=== PATIENT | male | born 2000 | race Caucasian/White ===

== ENCOUNTER 2024-03-17 11:40 | Emergency (ER) | payer MEDICAID, SELFPAY ==
[2024-03-17 12:21] VITALS: BP 133/80; PULSE 60; RESP 18; TEMP 37.3; O2SAT 98; BMI 26.9
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
== END 2024-03-17 12:33 | disposition home or self-care (01) ==
LOC: SERX 12:44
PROVIDERS: Emergency Provider Emergency Medicine
DX: K52.9 Noninfective gastroenteritis and colitis, unspecified (principal)
CPT/HCPCS: 99281

== ENCOUNTER 2024-05-05 09:17 | Emergency (ER) | payer MEDICAID, SELFPAY ==
[2024-05-05 09:28] VITALS: BP 130/72; PULSE 70; RESP 18; TEMP 36.8; O2SAT 97
[2024-05-05 09:29] VITALS: BMI 26.6
[2024-05-05 09:30] VITALS: BMI 27.3
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
[2024-05-05] MEDS: DIPHTH,PERTUSS(ACELL),TET VAC 0.5 ML SYR IMi (11:08)
== END 2024-05-05 11:06 ==
PROVIDERS: Emergency Provider Emergency Medicine
DX: Z02.89 Encounter for other administrative examinations (principal); S82.832A Other fracture of upper and lower end of left fibula, initial encounter for closed fracture; S00.83XA Contusion of other part of head, initial encounter; S50.311A Abrasion of right elbow, initial encounter; Z23 Encounter for immunization; Z65.3 Problems related to other legal circumstances; Z87.891 Personal history of nicotine dependence; Y04.0XXA Assault by unarmed brawl or fight, initial encounter
CPT/HCPCS: 29515; 70450; 70486; 73610; 73630; 90471; 90715; 99284

== ENCOUNTER 2024-05-07 09:39 | Emergency (ER) | payer MEDICAID, SELFPAY ==
--- NOTE | 2024-05-07 10:07 | EDNOTE_ITS ---
<Statement entered by Harika Robbins MD - 05/07/24 16:57> As co-signing physician, I was present and available for consult prn. I concur with the plan and care as documented by the midlevel provider. Lower Extremity Injury RME/HPI General Chief Complaint: Ankle/Foot Injury Stated Complaint: LEFT ANKLE PAIN, NEEDS CRUTCHES Time Seen by Provider: 05/07/24 10:15 Source: patient Arrival date/time: 05/07/24 09:39 23-year-old male with no known medical history presents to the emergency room with a chief complaint of left ankle pain. Patient was seen here 2 days ago and was discharged with a splint in place for an ankle fracture. Patient states he does not have any pain medication at home and needs crutches. Mode of arrival: ambulatory Limitations: no limitations Related Data Previous Rx's ?Medication ?Instructions ?Recorded amoxicillin 875 mg-potassium 1 tab PO Q12H #14 tabs clavulanate 125 mg tablet (Augmentin) apixaban 5 mg tablet (Eliquis) 10 mg (2 x 5 mg) PO BID #28 tabs 02/02/21 hydrocodone 5 mg-acetaminophen 325 1 tab PO BID PRN pa in #20 tabs 02/02/21 mg tablet sulfamethoxazole 800 1 tab PO Q12H #20 tabs 10/25 mg-trimethoprim 160 mg tablet ibuprofen 600 mg tablet 600 mg PO Q6H #30 tabs 03/17 loperamide 2 mg capsule (Imodium 2 mg PO Q6H PRN loose stool #14 03/17/24 A-D) caps ondansetron 4 mg disintegrating 4 mg PO Q8H PRN nausea and 03/17/24 tablet vomiting #10 tabs hydrocodone 5 mg-acetaminophen 325 1 tab PO BID PRN pa in #10 tabs 05/07/24 mg tablet Allergies Allergy/AdvReac Type Severity Reaction Status Date / Time No Known Allergies Allergy Verified 03/17/24 11:41 Review of Systems Review of Systems Systems Reviewed: All systems reviewed, normal except as documented Constitutional Constitutional: Reports system reviewed and no additional complaints, except as documented, Denies fatigue, Denies fever(s), Denies headache(s) and Denies weakness Eyes Eyes: Reports system reviewed and no additional complaints, except as documented, Denies blurry vision and Denies change in vision ENT Ears, Nose, Mouth, and Throat: Reports system reviewed and no additional complaints, except as documented, Denies otalgia, Denies headache(s), Denies nasal congestion, Denies throat swelling and Denies vertigo Cardiovascular Cardiovascular: Reports system reviewed and no additional complaints, except as documented, Denies chest pain, Denies dyspnea and Denies dyspnea on exertion Respiratory Respiratory: Reports system reviewed and no additional complaints, except as documented, Denies chest congestion, Denies cough, Denies dyspnea, Denies dyspnea on exertion and Denies wheezing Gastrointestinal Gastrointestinal: Reports system reviewed and no additional complaints, except as documented, Denies abdominal pain, Denies cramping, Denies nausea and Denies vomiting Genitourinary Genitourinary: Reports system reviewed and no additional complaints, except as documented, Denies dysuria and Denies hematuria Musculoskeletal Musculoskeletal: Reports system reviewed and no additional complaints, except as documented, Reports abnormal gait, Reports arthralgias, Denies back pain and Reports limited range of motion Integumentary/Breasts Skin/Breast: Reports system reviewed and no additional complaints, except as documented and Denies wounds Neurologic Neurologic: Reports system reviewed and no additional complaints, except as documented, Reports abnormal gait, Denies confusion, Denies headache(s), Denies lack of coordination, Denies vertigo and Denies weakness Psychiatric Psychiatric: Reports system reviewed and no additional complaints, except as documented, Denies anxiety, Denies confusion, Denies depression, Denies paranoia, Denies suicidal ideation and Denies tactile hallucinations Endocrine Endocrine: Reports system reviewed and no additional complaints, except as documented and Denies fatigue Hematologic/Lymphatic Hematologic/Lymphatic: Reports system reviewed and no additional complaints, except as documented and Denies lymphadenopathy Allergic/Immunologic Allergic/Immunologic: Reports system reviewed and no additional complaints, except as documented, Denies throat swelling, Denies urticaria and Denies wheezing Past Medical History Past Medical History NEUROLOGIC: Negative Neurological Disorders CARDIAC: Negative Cardiac Disorders or Congestive Heart Failure RESPIRATORY: Negative Chronic Obstructive Pulmonary Disease (COPD) or Asthma GENITOURINARY: Negative Renal Disease ENDOCRINE: Negative Diabetes Mellitus Type 1 or Diabetes Mellitus Type 2 HEMATOLOGIC: Negative Sickle Cell Disease OTHER HISTORY: Negative Hospitalization, Autoimmune Disease, Down Syndrome or Developmental Delay Social History SMOKING STATUS: Light (< 1 pack/day) SUBSTANCE USE: does not use ED Exam General Limitations: Present no limitations General appearance: Present alert and in no apparent distress Head Head exam: Present atraumatic Eye Eye exam: Present normal appearance, PERRL and EOMI ENT ENT exam: Present normal exam, normal oropharynx and mucous membranes moist Neck Neck exam: Present normal inspection, full ROM and trachea midline Chest Chest inspection: Present normal inspection and symmetric chest wall rise Respiratory Respiratory exam: Present normal lung sounds bilaterally Cardiovascular Cardiovascular exam: Present regular rate, normal rhythm and normal heart sounds Abdominal Exam Abdominal exam: Present soft and normal bowel sounds Extremities Exam Extremities exam: Present normal inspection and full ROM Expanded Lower Extremity Exam Hip/Pelvis exam: Present normal inspection Upper leg exam: Present normal inspection Knee exam: Present normal inspection Lower leg exam: Present normal inspection Ankle exam: Present tenderness and swelling; Absent full ROM Back Exam Back exam: Present normal inspection and full ROM Neurological Exam Neurological exam: Present alert, oriented X3 and CN II-XII intact Psychiatric Psychiatric exam: Present normal affect and normal mood Skin Skin exam: Present warm, dry, intact and normal color Course Quality Measures none Orders Category Date Time Status Crutches .NOW Care 05/07/24 10:01 Completed Ketorolac Inj [Toradol Inj] Med 05/07/24 10:01 Discontinued 30 mg IM X1 ONE Vital Signs Vital signs: Vital Signs Temperature 99.1 F 05/07/24 10:38 Pulse Rate 59 L 05/07/24 10:38 Respiratory Rate 16 05/07/24 10:38 Blood Pressure 145/83 H 05/07/24 10:38 Pulse Oximetry (%) 97 05/07/24 10:38 Oxygen Delivery Method Room Air 05/07/24 10:38 Extremity Injury, Lower MDM Narrative MDM Narrative:: 23-year-old male with no known medical history presents to the emergency room with a chief complaint of left ankle pain. Patient was seen here 2 days ago and was discharged with a splint in place for an ankle fracture. Patient states he does not have any pain medication at home and needs crutches. Patient is hemodynamically stable and in no distress An x-ray was completed here 2 days ago and the patient has an acute fracture of the distal fibular shaft. The patient presented to the emergency room with a splint in place. There is no numbness tingling or any complications with the splint. Patient states he is here for crutches because he never received them and he is having difficulty ambulating without any. Patient also states he is here for pain medication Patient was discharged with pain medication and discharged with crutches and educated to return to the emergency room for any evidence of worsening signs or symptoms Patient data External records reviewed:: [facility] previous records Clinical information provided by:: patient Social determinants that could affect healthcare access:: none Patient has the following chronic illnesses:: No chronic illness How is presenting disease/condition affected by chronic disease/condition?: no chronic disease Evaluation data The following diagnostics were reviewed and interpreted by me:: lab results and radiology exam(s) Lab and/or radiology exams considered but not ordered:: Labs and radiology exams considered and ordered Interpretation Summary: N/A Medications / Prescriptions Medications or Prescriptions considered but not ordered:: Medication given Medication administrations:: Medication Administration History Discontinued Medications Ketorolac Tromethamine (Ketorolac Inj 60 Mg/2 Ml Vial) 30 mg IM X1 ONE Stop: 05/07/24 10:02 Last Admin: 05/07/24 10:32 Dose: 30 mg Documented By: Medication given Consultations Consultation(s) initiated? (list below): No Diagnosis Extremity Injury, Lower Differential Diagnosis: ankle sprain and strain and ankle fracture Most likely diagnosis given after review of the tests above:: Ankle fracture Admission Indicated Admission indicated?: not indicated Admission Request Was there a request for admission?: No Disposition Plan Disposition Plan: Discharge Discharge Attestation Discharge Attestation: The patient and all family members were given an opportunity to ask questions and understood the discharge instructions. Discharge instructions specifically effects, indications for sooner follow up or return to the emergency department, and the expected course of current diagnosis. Patient condition: Stable Discharge Plan Plan Patient Disposition: HOME (Self Care) Disposition Comment: Stable Prescriptions/Referrals Prescriptions/Med Rec: New hydrocodone-acetaminophen 5-325 mg tablet 1 tab PO BID MDD 10mg PRN (Reason: pain) Qty: 10 0RF No Action sulfamethoxazole-trimethoprim 800-160 mg tablet 1 tab PO Q12H Qty: 20 0RF hydrocodone-acetaminophen 5-325 mg tablet 1 tab PO BID MDD 4 PRN (Reason: pain) Qty: 20 0RF amoxicillin-pot clavulanate [Augmentin] 875-125 mg tablet 1 tab PO Q12H Qty: 14 0RF Eliquis 5 mg tablet 10 mg PO BID MDD 4 Qty: 28 0RF loperamide [Imodium A-D] 2 mg capsule 2 mg PO Q6H PRN (Reason: loose stool) Qty: 14 0RF ibuprofen 600 mg tablet 600 mg PO Q6H Qty: 30 0RF ondansetron 4 mg tablet,disintegrating 4 mg PO Q8H PRN (Reason: nausea and vomiting) Qty: 10 0RF Problem List Clinical Impression: Fracture of distal end of left fibula Patient/Caregiver Discharge Instructions Education Materials: ED Fracture, Lower Extremity, ED Ankle Fracture, Distal Fibula Additional Instructions: Please follow-up with your primary care provider in the next 24 to 48 hours. Please keep your appointment with the behavior support specialist. Medication was sent to your pharmacy for your pain please pick it up and take it as indicated. Crutches were given to you. For any evidence of worsening signs or symptoms please return to the emergency room immediately Print Language: [place] Stand Alone Forms: Kelsi Award Info., Patient Portal Info Letter PA/JIM Supervising Physician PA/JIM Supervising Physician: Dr. ROBBINS
[2024-05-07] MEDS: KETOROLAC INJ 60 MG/2 ML VIAL 30 MG IM (10:32)
[2024-05-07 10:38] VITALS: BP 145/83; PULSE 59; RESP 16; TEMP 37.3; O2SAT 97; BMI 28.1
== END 2024-05-07 11:02 | disposition home or self-care (01) ==
LOC: SERX 11:07
PROVIDERS: Emergency Provider Emergency Medicine
DX: S82.832A Other fracture of upper and lower end of left fibula, initial encounter for closed fracture (principal); X58.XXXA Exposure to other specified factors, initial encounter
CPT/HCPCS: 96372; 99283; J1885

== ENCOUNTER 2024-07-15 07:59 | Emergency (ER) | payer MEDICAID, SELFPAY ==
[2024-07-15 08:21] VITALS: BP 160/88; PULSE 56; RESP 17; TEMP 36.4; O2SAT 100
--- NOTE | 2024-07-15 08:31 | XR_ITS ---
Examination: Tibia-Fibula, left , 2 views Technique: Tibia-fibula AP lateral 2 views Date and time of exam: July 15, 2024 0844 hours INDICATIONS: Patient fell today with injury of the lower leg, lower leg pain. FINDINGS: No acute fracture Old fracture distal fibular shaft No foreign body IMPRESSION: No acute fracture
--- NOTE | 2024-07-15 08:31 | XR_ITS ---
EXAMINATION: Ankle, left 3 views . Technique: Ankle AP, oblique, lateral 3 views Date and time of exam: July 15, 2024 0844 hours INDICATIONS: Patient fell today with injury to the ankle, ankle pain. FINDINGS: Old fracture distal fibular shaft No acute fracture No ankle dislocation IMPRESSION: No acute fracture
--- NOTE | 2024-07-15 08:33 | PD.EDLOWEX ---
Lower Extremity Injury RME/HPI General Chief Complaint: Extremity Injury, Lower Stated Complaint: SEVERE PAIN L) ANKLE/R) HAND/R) EAR SINCE YEST Time Seen by Provider: 07/15/24 08:32 Source: patient Arrival date/time: 07/15/24 07:59 24-year-old male with no known medical history presents to the emergency room with a chief complaint of pain and tenderness to his left ankle after being arrested yesterday and falling to the ground and injuring it. Patient also states there is tenderness to his right ear. Mode of arrival: ambulatory Limitations: no limitations Related Data Previous Rx's ?Medication ?Instructions ?Recorded amoxicillin 875 mg-potassium 1 tab PO Q12H #14 tabs 02/02/21 clavulanate 125 mg tablet (Augmentin) apixaban 5 mg tablet (Eliquis) 10 mg (2 x 5 mg) PO BID #28 tabs 02/02/21 hydrocodone 5 mg-acetaminophen 325 1 tab PO BID PRN pain #20 tabs 02/02/21 mg tablet sulfamethoxazole 800 1 tab PO Q12H #20 tabs 10/25/21 mg-trimethoprim 160 mg tablet ibuprofen 600 mg tablet 600 mg PO Q6H #30 tabs 03/17/24 loperamide 2 mg capsule (Imodium 2 mg PO Q6H PRN loose stool #14 03/17/24 A-D) caps ondansetron 4 mg disintegrating 4 mg PO Q8H PRN nausea and 03/17/24 tablet vomiting #10 tabs hydrocodone 5 mg-acetaminophen 325 1 tab PO BID PRN pain #10 tabs 05/07/24 mg tablet acetaminophen 325 mg capsule 650 mg (2 x 325 mg) PO QID PRN 07/15/24 fever or pain 7 days #30 caps amoxicillin 875 mg-potassium 1 tab PO BID 7 days #14 tabs 07/15/24 clavulanate 125 mg tablet ofloxacin 0.3 % ear drops 10 drp otic (ear) QDAY 7 days #5 mL 07/15/24 Allergies Allergy/AdvReac Type Severity Reaction Status Date / Time No Known Allergies Allergy Verified 07/15/24 08:06 Review of Systems Review of Systems Systems Reviewed: All systems reviewed, normal except as documented Constitutional Constitutional: Reports system reviewed and no additional complaints, except as documented, Denies fatigue, Denies fever(s), Denies headache(s) and Denies weakness Eyes Eyes: Reports system reviewed and no additional complaints, except as documented, Denies blurry vision and Denies change in vision ENT Ears, Nose, Mouth, and Throat: Reports system reviewed and no additional complaints, except as documented, Reports otalgia, Denies headache(s), Denies nasal congestion, Denies throat swelling and Denies vertigo Cardiovascular Cardiovascular: Reports system reviewed and no additional complaints, except as documented, Denies chest pain, Denies dyspnea and Denies dyspnea on exertion Respiratory Respiratory: Reports system reviewed and no additional complaints, except as documented, Denies chest congestion, Denies cough, Denies dyspnea, Denies dyspnea on exertion and Denies wheezing Gastrointestinal Gastrointestinal: Reports system reviewed and no additional complaints, except as documented, Denies abdominal pain, Denies cramping, Denies nausea and Denies vomiting Genitourinary Genitourinary: Reports system reviewed and no additional complaints, except as documented, Denies dysuria and Denies hematuria Musculoskeletal Musculoskeletal: Reports system reviewed and no additional complaints, except as documented, Reports abnormal gait, Reports arthralgias, Denies back pain, Reports joint swelling and Reports limited range of motion Integumentary/Breasts Skin/Breast: Reports system reviewed and no additional complaints, except as documented and Denies wounds Neurologic Neurologic: Reports system reviewed and no additional complaints, except as documented, Reports abnormal gait, Denies confusion, Denies headache(s), Denies lack of coordination, Denies vertigo and Denies weakness Psychiatric Psychiatric: Reports system reviewed and no additional complaints, except as documented, Denies anxiety, Denies confusion, Denies depression, Denies paranoia, Denies suicidal ideation and Denies tactile hallucinations Endocrine Endocrine: Reports system reviewed and no additional complaints, except as documented and Denies fatigue Hematologic/Lymphatic Hematologic/Lymphatic: Reports system reviewed and no additional complaints, except as documented and Denies lymphadenopathy Allergic/Immunologic Allergic/Immunologic: Reports system reviewed and no additional complaints, except as documented, Denies throat swelling, Denies urticaria and Denies wheezing Past Medical History Past Medical History NEUROLOGIC: Negative Neurological Disorders CARDIAC: Negative Cardiac Disorders or Congestive Heart Failure RESPIRATORY: Negative Chronic Obstructive Pulmonary Disease (COPD) or Asthma GENITOURINARY: Negative Renal Disease ENDOCRINE: Negative Diabetes Mellitus Type 1 or Diabetes Mellitus Type 2 HEMATOLOGIC: Negative Sickle Cell Disease OTHER HISTORY: Negative Hospitalization, Autoimmune Disease, Down Syndrome or Developmental Delay Social History SMOKING STATUS: Current every day smoker SUBSTANCE USE: does not use ED Exam General Limitations: Present no limitations General appearance: Present alert and in no apparent distress Head Head exam: Present atraumatic Eye Eye exam: Present normal appearance, PERRL and EOMI ENT ENT exam: Present normal exam, normal oropharynx and mucous membranes moist Expanded ENT Exam TM/Canal exam: Right TM: erythema, bulging, foreign body (Looks like a betts tail or mosquito on TM), canal discharge and canal tenderness Neck Neck exam: Present normal inspection, full ROM and trachea midline Chest Chest inspection: Present normal inspection and symmetric chest wall rise Respiratory Respiratory exam: Present normal lung sounds bilaterally Cardiovascular Cardiovascular exam: Present regular rate, normal rhythm and normal heart sounds Abdominal Exam Abdominal exam: Present soft and normal bowel sounds Extremities Exam Extremities exam: Present normal inspection and full ROM Expanded Lower Extremity Exam Hip/Pelvis exam: Present normal inspection Upper leg exam: Present normal inspection Knee exam: Present normal inspection Lower leg exam: Present normal inspection Ankle exam: Present tenderness and swelling; Absent full ROM Gait: observed and limited by pain Back Exam Back exam: Present normal inspection and full ROM Neurological Exam Neurological exam: Present alert, oriented X3 and CN II-XII intact Psychiatric Psychiatric exam: Present normal affect and normal mood Skin Skin exam: Present warm, dry, intact and normal color Course Quality Measures none Orders Category Date Time Status Crutches .NOW Care 07/15/24 08:31 Active ED Ear Irrigation X1 Care 07/15/24 08:31 Active gustavo wrap [Splint / Immobilizer] STAT Care 07/15/24 08:31 Active XR ankle comp LT min 3V Stat Exams 07/15/24 08:31 Completed XR tibia fibula LT 2V Stat Exams 07/15/24 08:31 Completed HYDROcodone*/APAP 5/325 [Hammond 5/325] Med 07/15/24 08:54 Discontinued 1 tab PO X1 ONE Vital Signs Vital signs: Vital Signs Temperature 97.5 F 07/15/24 08:21 Pulse Rate 56 L 07/15/24 08:21 Respiratory Rate 17 07/15/24 08:21 Blood Pressure 160/88 H 07/15/24 08:21 Pulse Oximetry (%) 100 07/15/24 08:21 Oxygen Delivery Method Room Air 07/15/24 08:21 Procedures -ED FB Removal Ear Location: ear canal (R) Foreign Body Suspected: insect TM intact pre-procedure: yes If Insect Suspected: ear canal instilled with Lidocaine Foreign Body Removed: partial removal Foreign Body Removal Technique: irrigation Tympanic Membrane Intact Post Procedure: Yes Patient Tolerated Procedure: no complications and other (Patient was having a lot of pain and tenderness and we are not able to remove the foreign body) Complications: unable to tolerate Extremity Injury, Lower MDM Narrative MDM Narrative:: 24-year-old male with no known medical history presents to the emergency room with a chief complaint of pain and tenderness to his left ankle after being arrested yesterday and falling to the ground and injuring it. Patient also states there is tenderness to his right ear. Physical examination shows a right sided erythemic bulging tympanic membrane. There is also a foreign body inside the ear canal on the tympanic membrane. It appears to be either a betts tail type of grass or a mosquito insect. The ear was irrigated multiple times. Lidocaine was used inside to numb up the area and kill the insect if it is an insect. I tried to manually remove the insect with forceps and only partially removed which appears to be an insect leg or piece of grass. Patient states he is having pain around the ear canal when going in with tools. Based on the patient's pain I decided to stop. Tympanic membrane is still intact bulging but is very erythemic. I spoke to the patient and told him he will need to follow-up with his primary care provider for referral to an ENT specialist. Antibiotics were sent to his pharmacy Patient is also complaining of pain and tenderness to his ankle. X-rays were negative for any acute fracture or dislocation Patient was discharged and educated to follow-up with primary care provider in the next 24 to 48 hours and return to the emergency room for any evidence of worsening signs or symptoms Patient data External records reviewed:: [facility] previous records Clinical information provided by:: patient Social determinants that could affect healthcare access:: none Patient has the following chronic illnesses:: No chronic illness How is presenting disease/condition affected by chronic disease/condition?: no chronic disease Evaluation data The following diagnostics were reviewed and interpreted by me:: lab results and radiology exam(s) Lab and/or radiology exams considered but not ordered:: Labs and radiology exams considered and ordered Interpretation Summary: X-ray of the left ankle-no acute fracture or dislocation X-ray of the left tib-fib-no acute fracture or dislocation Medications / Prescriptions Medications or Prescriptions considered but not ordered:: Medication given Medication administrations:: Medication Administration History Discontinued Medications Hydrocodone Bitart/Acetaminophen (Hydrocodone/Apap 5/325 Tablet) 1 tab PO X1 ONE Stop: 07/15/24 08:55 Last Admin: 07/15/24 09:05 Dose: 1 tab Documented By: OLIVER Medication given Consultations Consultation(s) initiated? (list below): No Diagnosis Extremity Injury, Lower Differential Diagnosis: ankle sprain and strain and other (Foreign body in the right ear) Most likely diagnosis given after review of the tests above:: Foreign body in the right ear Admission Indicated Admission indicated?: not indicated Admission Request Was there a request for admission?: No Disposition Plan Disposition Plan: Discharge Discharge Attestation Discharge Attestation: The patient and all family members were given an opportunity to ask questions and understood the discharge instructions. Discharge instructions specifically effects, indications for sooner follow up or return to the emergency department, and the expected course of current diagnosis. Patient condition: Stable Discharge Plan Plan Patient Disposition: HOME (Self Care) Disposition Comment: Stable Prescriptions/Referrals Prescriptions/Med Rec: New ofloxacin 0.3 % drops 10 drp otic (ear) QDAY 7 Days Qty: 5 0RF amoxicillin-pot clavulanate 875-125 mg tablet 1 tab PO BID 7 Days Qty: 14 0RF acetaminophen 325 mg capsule 650 mg PO QID PRN (Reason: fever or pain) 7 Days Qty: 30 0RF No Action sulfamethoxazole-trimethoprim 800-160 mg tablet 1 tab PO Q12H Qty: 20 0RF hydrocodone-acetaminophen 5-325 mg tablet 1 tab PO BID MDD 4 PRN (Reason: pain) Qty: 20 0RF amoxicillin-pot clavulanate [Augmentin] 875-125 mg tablet 1 tab PO Q12H Qty: 14 0RF Eliquis 5 mg tablet 10 mg PO BID MDD 4 Qty: 28 0RF hydrocodone-acetaminophen 5-325 mg tablet 1 tab PO BID MDD 10mg PRN (Reason: pain) Qty: 10 0RF loperamide [Imodium A-D] 2 mg capsule 2 mg PO Q6H PRN (Reason: loose stool) Qty: 14 0RF ibuprofen 600 mg tablet 600 mg PO Q6H Qty: 30 0RF ondansetron 4 mg tablet,disintegrating 4 mg PO Q8H PRN (Reason: nausea and vomiting) Qty: 10 0RF Referrals: No Primary/Family,Physician [Primary Care Provider] - In 1 week Problem List Clinical Impression: Ankle sprain and strain, Otitis media, Acute foreign body of right ear Patient/Caregiver Discharge Instructions Education Materials: ED EAR CANAL Foreign Body, ED Otitis Media Antibiotic ... Additional Instructions: Please follow-up with your primary care provider in the next 24 to 48 hours. You will need a referral to an ENT specialist to try and remove this foreign body from your right ear. Multiple attempts were made here in the emergency room and were not successful. Antibiotics were sent to your pharmacy please pick them up and take them as indicated. For any evidence of worsening signs or symptoms return to the emergency room immediately Print Language: Sinhala Stand Alone Forms: Kelsi Award Info., Work/School Release, Patient Portal Info Letter PA/SOUND CONTROLLER Supervising Physician PA/JIM Supervising Physician: Dr. Alvarado
[2024-07-15] MEDS: HYDROcodone/APAP 5/325 TABLET 1 TAB PO (09:05)
== END 2024-07-15 10:17 | disposition home or self-care (01) ==
PROVIDERS: Emergency Provider Family Medicine
DX: T16.1XXA Foreign body in right ear, initial encounter (principal); S93.402A Sprain of unspecified ligament of left ankle, initial encounter; S96.912A Strain of unspecified muscle and tendon at ankle and foot level, left foot, initial encounter; S89.92XA Unspecified injury of left lower leg, initial encounter; H66.91 Otitis media, unspecified, right ear; F17.210 Nicotine dependence, cigarettes, uncomplicated; W44.9XXA Unspecified foreign body entering into or through a natural orifice, initial encounter; Z65.3 Problems related to other legal circumstances; W19.XXXA Unspecified fall, initial encounter
CPT/HCPCS: 69200; 73590; 73610; 99283; A9270

== ENCOUNTER 2025-03-11 04:55 | Emergency (ER) | payer MEDICAID, SELFPAY ==
[2025-03-11 04:57] VITALS: BMI 25.8
[2025-03-11 05:01] VITALS: BP 131/83; PULSE 77; RESP 18; TEMP 36.7; O2SAT 100
--- NOTE | 2025-03-11 05:16 | XR_ITS ---
EXAMINATION: Ankle, left 3 views. Technique: Ankle AP, oblique, lateral 3 views Date and time of exam: March 11, 2025, 0531 hours INDICATIONS: Injury to the ankle today, ankle pain FINDINGS: Status post operative reduction internal fixation healed fracture distal fibular shaft No acute ankle fracture Mild osteoarthritis tibiotalar joint No ankle dislocation IMPRESSION: No acute ankle fracture
--- NOTE | 2025-03-11 05:16 | PD.EDRME ---
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 Chief Complaint: Ankle/Foot Injury Vital signs: Vital Signs Temperature 98.1 F 03/11/25 05:01 Pulse Rate 77 03/11/25 05:01 Respiratory Rate 18 03/11/25 05:01 Blood Pressure 131/83 H 03/11/25 05:01 Pulse Oximetry (%) 100 03/11/25 05:01 Oxygen Delivery Method Room Air 03/11/25 05:01 Exam: L ankle swelling, tenderness, and bruising. ROM limited. No foot tenderness. Clinical Impression: Ankle sprain vs ankle strain vs ankle fx vs ankle dislocation
[2025-03-11 08:03] VITALS: BP 148/89; PULSE 81; RESP 16; TEMP 36.8; O2SAT 99
--- NOTE | 2025-03-11 08:09 | EDNOTE_ITS ---
<Statement entered by Harika Robbins MD - 03/26/25 17:42> As co-signing physician, I was present and available for consult prn. I concur with the plan and care as documented by the midlevel provider. 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 Exam: L ankle swelling, tenderness, and bruising. ROM limited. No foot tenderness. Impression: Ankle sprain vs ankle strain vs ankle fx vs ankle dislocation Related Data Previous Rx's ?Medication ?Instructions ?Recorded amoxicillin 875 mg-potassium 1 tab PO Q12H #14 tabs clavulanate 125 mg tablet (Augmentin) apixaban 5 mg tablet (Eliquis) 10 mg (2 x 5 mg) PO BID #28 tabs 02/02/21 hydrocodone 5 mg-acetaminophen 325 1 tab PO BID PRN pa in #20 tabs 02/02/21 mg tablet sulfamethoxazole 800 1 tab PO Q12H #20 tabs 10/25 mg-trimethoprim 160 mg tablet ibuprofen 600 mg tablet 600 mg PO Q6H #30 tabs 03/17 loperamide 2 mg capsule (Imodium 2 mg PO Q6H PRN loose stool #14 03/17/24 A-D) caps ondansetron 4 mg disintegrating 4 mg PO Q8H PRN nausea and 03/17/24 tablet vomiting #10 tabs hydrocodone 5 mg-acetaminophen 325 1 tab PO BID PRN pa in #10 tabs 05/07/24 mg tablet Allergies Allergy/AdvReac Type Severity Reaction Status Date / Time No Known Allergies Allergy Verified 03/11/25 04:56 Review of Systems Review of Systems Systems Reviewed: All systems reviewed, normal except as documented Constitutional Constitutional: Reports system reviewed and no additional complaints, except as documented, Denies fever(s) and Denies headache(s) Eyes Eyes: Reports system reviewed and no additional complaints, except as documented and Denies blurry vision ENT Ears, Nose, Mouth, and Throat: Reports system reviewed and no additional complaints, except as documented, Denies headache(s), Denies nasal congestion and Denies nasal discharge Cardiovascular Cardiovascular: Reports system reviewed and no additional complaints, except as documented, Denies chest pain and Denies dyspnea Respiratory Respiratory: Reports system reviewed and no additional complaints, except as documented, Denies chest congestion, Denies cough and Denies dyspnea Gastrointestinal Gastrointestinal: Reports system reviewed and no additional complaints, except as documented and Denies abdominal pain Musculoskeletal Musculoskeletal: Reports system reviewed and no additional complaints, except as documented, Reports abnormal gait, Reports arthralgias, Denies deformity, Reports joint swelling, Denies numbness, Reports stiffness and Denies tingling Integumentary/Breasts Skin/Breast: Reports system reviewed and no additional complaints, except as documented and Denies rash Neurologic Neurologic: Reports system reviewed and no additional complaints, except as documented, Reports as per HPI, Reports abnormal gait, Denies headache(s), Denies numbness and Denies tingling Past Medical History Past Medical History NEUROLOGIC: Negative Neurological Disorders CARDIAC: Negative Cardiac Disorders or Congestive Heart Failure RESPIRATORY: Negative Chronic Obstructive Pulmonary Disease (COPD) or Asthma GENITOURINARY: Negative Renal Disease ENDOCRINE: Negative Diabetes Mellitus Type 1 or Diabetes Mellitus Type 2 HEMATOLOGIC: Negative Sickle Cell Disease OTHER HISTORY: Negative Hospitalization, Autoimmune Disease, Down Syndrome or Developmental Delay Social History SMOKING STATUS: Current every day smoker SUBSTANCE USE: does not use ED Exam General Limitations: Present no limitations General appearance: Present alert and in no apparent distress Head Head exam: Present atraumatic Eye Eye exam: Present normal appearance, PERRL and EOMI ENT ENT exam: Present normal exam, normal oropharynx and mucous membranes moist Neck Neck exam: Present normal inspection, full ROM and trachea midline Chest Chest inspection: Present normal inspection and symmetric chest wall rise Respiratory Respiratory exam: Present normal lung sounds bilaterally Cardiovascular Cardiovascular exam: Present regular rate, normal rhythm and normal heart sounds Abdominal Exam Abdominal exam: Present soft and normal bowel sounds Extremities Exam Extremities exam: Present full ROM, tenderness (Previous scar left ankle) and normal capillary refill; Absent pedal edema or calf tenderness Back Exam Back exam: Present normal inspection and full ROM Neurological Exam Neurological exam: Present alert, oriented X3 and CN II-XII intact Psychiatric Psychiatric exam: Present normal affect and normal mood Skin Skin exam: Present warm, dry, intact and normal color Course Quality Measures none Orders Category Date Time Status Crutches .NOW Care 03/11/25 08:09 Completed Splint / Immobilizer STAT Care 03/11/25 08:09 Completed XR ankle comp LT min 3V Stat Exams 03/11/25 05:16 Completed Vital Signs Vital signs: Vital Signs Temperature 98.1 F 03/11/25 05:01 Pulse Rate 77 03/11/25 05:01 Respiratory Rate 18 03/11/25 05:01 Blood Pressure 131/83 H 03/11/25 05:01 Pulse Oximetry (%) 100 03/11/25 05:01 Oxygen Delivery Method Room Air 03/11/25 05:01 O2 saturation 100% on room air within normal limits Extremity Injury, Lower MDM Narrative MDM Narrative:: 24-year-old male presents to the emergency department today stating that he was running and twisted his left ankle patient reports pain to the top of his left foot and left ankle patient reports previous fracture to the left ankle with repair On exam patient well-appearing does not appear toxic no distress Imaging of the left ankle obtained no acute fracture or dislocation noted Patient placed in a cast boot and given crutches Patient discharged home in no distress to follow-up with primary care doctor in the next 24 to 48 hours and for any worsening symptoms to return to the ER im mediately Patient data External records reviewed:: [facility] previous records Clinical information provided by:: patient Social determinants that could affect healthcare access:: none Patient has the following chronic illnesses:: See history How is presenting disease/condition affected by chronic disease/condition?: exacerbated by Evaluation data The following diagnostics were reviewed and interpreted by me:: radiology exam(s) Lab and/or radiology exams considered but not ordered:: Radiology obtained Interpretation Summary: Reviewed by me Medications / Prescriptions Medications or Prescriptions considered but not ordered:: Given Medication administrations:: Given Consultations Consultation(s) initiated? (list below): No Diagnosis Extremity Injury, Lower Differential Diagnosis: ankle sprain and strain and ankle fracture Most likely diagnosis given after review of the tests above:: Ankle fracture Admission Indicated Admission indicated?: not indicated Admission Request Was there a request for admission?: No Disposition Plan Disposition Plan: Discharge Discharge Attestation Discharge Attestation: The patient and all family members were given an opportunity to ask questions and understood the discharge instructions. Discharge instructions specifically effects, indications for sooner follow up or return to the emergency department, and the expected course of current diagnosis. Patient condition: Stable Discharge Plan Plan Patient Disposition: HOME (Self Care) Discharge Disposition comment: Stable Prescriptions/Referrals Prescriptions/Med Rec: No Action sulfamethoxazole-trimethoprim 800-160 mg tablet 1 tab PO Q12H Qty: 20 0RF hydrocodone-acetaminophen 5-325 mg tablet 1 tab PO BID MDD 4 PRN (Reason: pain) Qty: 20 0RF amoxicillin-pot clavulanate [Augmentin] 875-125 mg tablet 1 tab PO Q12H Qty: 14 0RF Eliquis 5 mg tablet 10 mg PO BID MDD 4 Qty: 28 0RF hydrocodone-acetaminophen 5-325 mg tablet 1 tab PO BID MDD 10mg PRN (Reason: pain) Qty: 10 0RF loperamide [Imodium A-D] 2 mg capsule 2 mg PO Q6H PRN (Reason: loose stool) Qty: 14 0RF ibuprofen 600 mg tablet 600 mg PO Q6H Qty: 30 0RF ondansetron 4 mg tablet,disintegrating 4 mg PO Q8H PRN (Reason: nausea and vomiting) Qty: 10 0RF Referrals: Alex Barajas MD [Primary Care Provider, Family Practice] - In 1 week Problem List Clinical Impression: Sprain of left foot Patient/Caregiver Discharge Instructions Additional Instructions: Please follow up with your primary care doctor in the next 24-48hrs for any worsening symptoms return here immediately Print Language: Brazilian Stand Alone Forms: Kelsi Award Info., Patient Portal Info Letter PA/CHOIR MEMBER Supervising Physician PA/JIM Supervising Physician: Dr. Robbins
== END 2025-03-11 08:23 | disposition home or self-care (01) ==
PROVIDERS: Emergency Provider Emergency Medicine; PCP Family Medicine
DX: S93.602A Unspecified sprain of left foot, initial encounter (principal); X50.1XXA Overexertion from prolonged static or awkward postures, initial encounter; Y93.02 Activity, running
CPT/HCPCS: 73610; 99283

== ENCOUNTER 2025-03-24 15:20 | Emergency (ER) | payer OTHER, SELFPAY ==
[2025-03-24 15:26] VITALS: BP 156/96; PULSE 72; RESP 16; TEMP 36.9; O2SAT 100
[2025-03-24 15:27] VITALS: BMI 23.6
--- NOTE | 2025-03-24 16:17 | EDNOTE_ITS ---
ED Ear RME/HPI General Chief complaint: Ear Stated complaint: SHULTZ TAIL IN EAR Time Seen by Provider: 03/24/25 15:59 Source: patient Arrival date/time: 03/24/25 15:20 24-year-old male with no known medical history presents to the emergency room with a chief complaint of a shultz tail in his left ear x 8 months Mode of arrival: ambulatory Limitations: no limitations Related Data Previous Rx's ?Medication ?Instructions ?Recorded amoxicillin 875 mg-potassium 1 tab PO Q12H #14 tabs clavulanate 125 mg tablet (Augmentin) apixaban 5 mg tablet (Eliquis) 10 mg (2 x 5 mg) PO BID #28 tabs 02/02/21 hydrocodone 5 mg-acetaminophen 325 1 tab PO BID PRN pa in #20 tabs 02/02/21 mg tablet sulfamethoxazole 800 1 tab PO Q12H #20 tabs 10/25 mg-trimethoprim 160 mg tablet ibuprofen 600 mg tablet 600 mg PO Q6H #30 tabs 03/17 loperamide 2 mg capsule (Imodium 2 mg PO Q6H PRN loose stool #14 03/17/24 A-D) caps ondansetron 4 mg disintegrating 4 mg PO Q8H PRN nausea and 03/17/24 tablet vomiting #10 tabs hydrocodone 5 mg-acetaminophen 325 1 tab PO BID PRN pa in #10 tabs 05/07/24 mg tablet amoxicillin 875 mg-potassium 1 tab PO BID 7 days #14 t abs 03/24/25 clavulanate 125 mg tablet ofloxacin 0.3 % ear drops 5 drp otic (ear) QDAY 7 days #5 mL 03/24/25 Allergies Allergy/AdvReac Type Severity Reaction Status Date / Time No Known Allergies Allergy Verified 03/24/25 15:36 Review of Systems Review of Systems Systems Reviewed: All systems reviewed, normal except as documented Constitutional Constitutional: Reports system reviewed and no additional complaints, except as documented, Denies fatigue, Denies fever(s), Denies headache(s) and Denies weakness Eyes Eyes: Reports system reviewed and no additional complaints, except as documented, Denies blurry vision and Denies change in vision ENT Ears, Nose, Mouth, and Throat: Reports system reviewed and no additional complaints, except as documented, Reports otalgia, Denies headache(s), Denies nasal congestion, Denies throat swelling and Denies vertigo Cardiovascular Cardiovascular: Reports system reviewed and no additional complaints, except as documented, Denies chest pain, Denies dyspnea and Denies dyspnea on exertion Respiratory Respiratory: Reports system reviewed and no additional complaints, except as documented, Denies chest congestion, Denies cough, Denies dyspnea, Denies dyspne a on exertion and Denies wheezing Gastrointestinal Gastrointestinal: Reports system reviewed and no additional complaints, except as documented, Denies abdominal pain, Denies cramping, Denies nausea and Denies vomiting Genitourinary Genitourinary: Reports system reviewed and no additional complaints, except as documented, Denies dysuria and Denies hematuria Musculoskeletal Musculoskeletal: Reports system reviewed and no additional complaints, except as documented and Denies back pain Integumentary/Breasts Skin/Breast: Reports system reviewed and no additional complaints, except as documented and Denies wounds Neurologic Neurologic: Reports system reviewed and no additional complaints, except as documented, Denies confusion, Denies headache(s), Denies lack of coordination, Denies vertigo and Denies weakness Psychiatric Psychiatric: Reports system reviewed and no additional complaints, except as documented, Denies anxiety, Denies confusion, Denies depression, Denies paranoia, Denies suicidal ideation and Denies tactile hallucinations Endocrine Endocrine: Reports system reviewed and no additional complaints, except as documented and Denies fatigue Hematologic/Lymphatic Hematologic/Lymphatic: Reports system reviewed and no additional complaints, except as documented and Denies lymphadenopathy Allergic/Immunologic Allergic/Immunologic: Reports system reviewed and no additional complaints, except as documented, Denies throat swelling, Denies urticaria and Denies wheezing Past Medical History Past Medical History NEUROLOGIC: Negative Neurological Disorders CARDIAC: Negative Cardiac Disorders or Congestive Heart Failure RESPIRATORY: Negative Chronic Obstructive Pulmonary Disease (COPD) or Asthma GENITOURINARY: Negative Renal Disease ENDOCRINE: Negative Diabetes Mellitus Type 1 or Diabetes Mellitus Type 2 HEMATOLOGIC: Negative Sickle Cell Disease OTHER HISTORY: Negative Hospitalization, Autoimmune Disease, Down Syndrome or Developmental Delay Social History SMOKING STATUS: Current every day smoker SUBSTANCE USE: does not use ED Exam General Limitations: Present no limitations General appearance: Present alert and in no apparent distress Head Head exam: Present atraumatic Eye Eye exam: Present normal appearance, PERRL and EOMI ENT ENT exam: Present normal exam, normal oropharynx and mucous membranes moist Expanded ENT Exam External ear exam: Present external tenderness TM/Canal exam: Right TM: erythema, bulging, effusion and foreign body (shultz tail) Neck Neck exam: Present normal inspection, full ROM and trachea midline Chest Chest inspection: Present normal inspection and symmetric chest wall rise Respiratory Respiratory exam: Present normal lung sounds bilaterally Cardiovascular Cardiovascular exam: Present regular rate, normal rhythm and normal heart sounds Abdominal Exam Abdominal exam: Present soft and normal bowel sounds Extremities Exam Extremities exam: Present normal inspection and full ROM Back Exam Back exam: Present normal inspection and full ROM Neurological Exam Neurological exam: Present alert, oriented X3 and CN II-XII intact Psychiatric Psychiatric exam: Present normal affect and normal mood Skin Skin exam: Present warm, dry, intact and normal color Course Quality Measures none Orders Category Date Time Status ED Ear Irrigation X1 Care 03/24/25 15:53 Active HYDROcodone*/APAP 5/325 [[place] 5/325] Med 03/24/25 16:24 Discontinued 1 tab PO X1 ONE Meclizine HCl [Antivert] Med 03/24/25 16:24 Discontinued 50 mg PO X1 ONE cefTRIAXone [Rocephin] 1,000 mg Med 03/24/25 16:25 Discontinued Lidocaine 1% Pf Vial 5ml [Xylocaine 1% Pf 5 ml] 2.1 ml IM X1 Vital Signs Vital signs: Vital Signs Temperature 98.4 F 03/24/25 15:26 Pulse Rate 72 03/24/25 15:26 Respiratory Rate 16 03/24/25 15:26 Blood Pressure 156/96 H 03/24/25 15:26 Pulse Oximetry (%) 100 03/24/25 15:26 Oxygen Delivery Method Room Air 03/24/25 15:26 Ear MDM Narrative MDM Narrative:: 24-year-old male with no known medical history presents to the emergency room with a chief complaint of a shultz tail in his left ear x 8 months Patient is hemodynamically stable and in no apparent distress. Patient is afebrile not tachycardic not tachypneic Physical examination shows an erythemic bulging right sided tympanic membrane. The patient also has a foreign body inside his ear which is a shultz tail. Patient was seen here on June 2024 for the same complaint. This patient has had this foreign body in place since June. Patient states he has been unable to see an ENT specialist at this time. The patient is now going in for incarceration and states he was having pain and tenderness in his ear. I attempted irrigation as well as manual removal of the foxtail but was unsuccessful due to it being too close to the tympanic membrane and too painful for the patient to tolerate. The patient was given oral antibiotics for otitis media and educated to follow-up with ENT. The patient was then medically cleared for incarceration Patient was discharged and educated to follow-up with primary care provider in the next 24 to 48 hours and return to the emergency room for any evidence of wor sening signs or symptoms Patient data External records reviewed:: [facility] previous records Clinical information provided by:: patient Social determinants that could affect healthcare access:: none Patient has the following chronic illnesses:: No chronic illness How is presenting disease/condition affected by chronic disease/condition?: no chronic disease Evaluation data The following diagnostics were reviewed and interpreted by me:: lab results and radiology exam(s) Lab and/or radiology exams considered but not ordered:: Labs and radiology exams considered and ordered yes Interpretation Summary: N/A Medications / Prescriptions Medications or Prescriptions considered but not ordered:: Medication given Medication administrations:: Medication Administration History Discontinued Medications Hydrocodone Bitart/Acetaminophen (Hydrocodone/Apap 5/325 Tablet) 1 tab PO X1 ONE Stop: 03/24/25 16:25 Ceftriaxone Sodium 1,000 mg/ (Lidocaine HCl 2.1 ml) 0 mg IM X1 ONE Stop: 03/24/25 16:26 Meclizine HCl (Meclizine Hcl 25 Mg Tablet) 50 mg PO X1 ONE Stop: 03/24/25 16:25 Medication given Consultations Consultation(s) initiated? (list below): No Diagnosis Ear Differential Diagnosis: otitis externa, otitis media and foreign body in ear Most likely diagnosis given after review of the tests above:: Foreign body in ear, otitis media Admission Indicated Admission indicated?: not indicated Admission Request Was there a request for admission?: No Disposition Plan Disposition Plan: Discharge Discharge Attestation Discharge Attestation: The patient and all family members were given an opportunity to ask questions and understood the discharge instructions. Discharge instructions specifically effects, indications for sooner follow up or return to the emergency department, and the expected course of current diagnosis. Patient condition: Stable Medical Decision Making MDM Narrative MDM Narrative: 24-year-old male with no known medical history presents to the emergency room with a chief complaint of a shultz tail in his left ear x 8 months Discharge Plan Plan Patient Disposition: HOME (Self Care) Discharge Disposition comment: Stable Prescriptions/Referrals Prescriptions/Med Rec: New ofloxacin 0.3 % drops 5 drp otic (ear) QDAY 7 Days Qty: 5 0RF amoxicillin-pot clavulanate 875-125 mg tablet 1 tab PO BID 7 Days Qty: 14 0RF No Action sulfamethoxazole-trimethoprim 800-160 mg tablet 1 tab PO Q12H Qty: 20 0RF hydrocodone-acetaminophen 5-325 mg tablet 1 tab PO BID MDD 4 PRN (Reason: pain) Qty: 20 0RF amoxicillin-pot clavulanate [Augmentin] 875-125 mg tablet 1 tab PO Q12H Qty: 14 0RF Eliquis 5 mg tablet 10 mg PO BID MDD 4 Qty: 28 0RF hydrocodone-acetaminophen 5-325 mg tablet 1 tab PO BID MDD 10mg PRN (Reason: pain) Qty: 10 0RF loperamide [Imodium A-D] 2 mg capsule 2 mg PO Q6H PRN (Reason: loose stool) Qty: 14 0RF ibuprofen 600 mg tablet 600 mg PO Q6H Qty: 30 0RF ondansetron 4 mg tablet,disintegrating 4 mg PO Q8H PRN (Reason: nausea and vomiting) Qty: 10 0RF Problem List Clinical Impression: Otitis media, Medical clearance for incarceration Patient/Caregiver Discharge Instructions Education Materials: Anatomy of the Ear, ED Otitis Media Antibiotic ... Additional Instructions: Please follow-up with your primary care provider in the next 24 to 48 hours Antibiotics are sent to your pharmacy please pick them up and take them as indicated You have a foreign body in your right ear this foreign body has been in place since June. Please follow-up with your ENT so they can remove this foxtail from your ear as it is laying on your tympanic membrane. You are medically cleared for incarceration For any evidence of worsening signs or symptoms return to the emergency room immediately Print Language: Uzbek Stand Alone Forms: [employer]elsi Award Info., Work/School Release, Patient Portal Info Letter
[2025-03-24] MEDS: HYDROcodone/APAP 5/325 TABLET 1 TAB PO (16:57)
[2025-03-24] MEDS: MECLIZINE HCL 25 MG TABLET 50 MG PO (16:58)
[2025-03-24 17:17] VITALS: BP 124/88; PULSE 76; RESP 17; TEMP 37.1; O2SAT 99
== END 2025-03-24 17:17 ==
LOC: SERX 16:29
PROVIDERS: Emergency Provider Nurse Practitioner Family
DX: Z02.89 Encounter for other administrative examinations (principal); T16.1XXA Foreign body in right ear, initial encounter; H66.91 Otitis media, unspecified, right ear; W44.F9XA Other object of natural or organic material, entering into or through a natural orifice, initial encounter
CPT/HCPCS: 69200; 96372; 99282; J0696; J3490; A9270